=== PATIENT | female | born 1950 | race Caucasian/White ===

== ENCOUNTER 2021-07-21 11:34 | Outpatient (CLI) | payer OTHER, MEDICARE | END 2021-07-22 16:43 | disposition home or self-care (01) | LOC: SMA 11:34 | PROVIDERS: ATTEND Internal Medicine | DX: Z12.31 Encounter for screening mammogram for malignant neoplasm of breast (principal); N64.89 Other specified disorders of breast | CPT/HCPCS: 77067 ==

== ENCOUNTER 2021-12-08 08:54 | Outpatient (CLI) | payer OTHER, MEDICARE | END 2021-12-08 17:00 | disposition home or self-care (01) | LOC: SCT 08:54 | PROVIDERS: ATTEND Internal Medicine | DX: R91.8 Other nonspecific abnormal finding of lung field (principal); M47.814 Spondylosis without myelopathy or radiculopathy, thoracic region; I70.90 Unspecified atherosclerosis | CPT/HCPCS: 71250-TC; 76376 ==

== ENCOUNTER 2022-12-14 08:40 | Outpatient (CLI) | payer OTHER ==
[2022-12-14 09:55] LABS: BASOPHILS % (AUTO) 0.4 % (0.0-2.0); EOSINOPHILS # (AUTO) 0.1 K/uL (0.0-0.4); EOSINOPHILS % (AUTO) 1.7 % (0.0-4.0); HEMATOCRIT 40.7 % (36-48); LYMPHOCYTES # (AUTO) 1.6 K/uL (1.0-5.5); LYMPHOCYTES % (AUTO) 25.8 % (20.5-51.5); MEAN CORPUSCULAR HEMOGLOBIN 34 pg (27-31); MEAN CORPUSCULAR HGB CONC 34 % (32-36); MEAN CORPUSCULAR VOLUME 100 fL (79.0-98.0); MONOCYTES # (AUTO) 0.5 K/uL (0.0-1.0); MONOCYTES % (AUTO) 8.7 % (1.7-9.3); NEUTROPHILS # (AUTO) 3.8 K/uL (1.8-7.7); NEUTROPHILS % (AUTO) 63.4 % (40.0-70.0); PLATELET COUNT (AUTO) 242 K/uL (130-430); RED BLOOD CELL COUNT(AUTO) 4.07 MIL/uL (4.2-6.2); RED CELL DISTRIBUTION WIDTH 11.9 % (9.0-15.0); WHITE BLOOD COUNT (AUTO) 6.1 K/uL (4.8-10.8)
[2022-12-14 10:18] LABS: ALANINE AMINOTRANSFERASE 22 U/L (12-78); ALBUMIN 3.8 g/dL (3.4-4.8); ANION GAP 6 (5-15); ASPARTATE AMINOTRANSFERASE 16 U/L (10-37); CALCIUM 9.6 mg/dL (8.4-11.0); CHLORIDE 100 mmol/L (98-107); CHOLESTEROL 271 mg/dL (<200); CREATININE 0.87 mg/dL (0.55-1.30); GLUCOSE 108 mg/dL (70-99); HDL CHOLESTEROL 86 mg/dL (>55); THYROID STIMULATING HORMONE 1.73 uIu/mL (0.34-4.82); TOTAL BILIRUBIN 0.6 mg/dL (0.0-1.0); UREA NITROGEN, BLOOD 13 mg/dL (8-21)
[2022-12-14 10:30] LABS: TRIGLYCERIDES 167 mg/dL (30-150)
== END 2022-12-14 18:05 | disposition home or self-care (01) ==
LOC: SMA 08:40
PROVIDERS: ATTEND Internal Medicine
DX: Z12.31 Encounter for screening mammogram for malignant neoplasm of breast (principal); I10 Essential (primary) hypertension; R73.09 Other abnormal glucose; E78.5 Hyperlipidemia, unspecified; E87.5 Hyperkalemia; E55.9 Vitamin D deficiency, unspecified; E56.9 Vitamin deficiency, unspecified
CPT/HCPCS: 36415; 77067; 80053; 80061; 82306; 82607; 83037; 84443; 85025